=== PATIENT | female | born 1985 | race Caucasian/White ===

== ENCOUNTER → 2017-04-15 | Emergency (ER) | payer OTHER ==
[~2017-04-15] VITALS: Ht 152.4 cm; Wt 60.8 kg
[~2017-04-15] MED LIST: CLEOCIN HCL300 MG PO; DICLOFENAC SODI50 MG PO; KETO10TA2 PO; LINDANE60 M1 TP; MOTRIN800 MG PO; NORFLEX100MG PO; ORPH100T PO; ULTRACET PO
== END | disposition home or self-care (01) ==
LOC: ER 15:52
DX: B34.9 Viral infection, unspecified (principal)

== ENCOUNTER 2017-04-23 15:59 | Emergency (ER) | payer OTHER ==
[~2017-04-23] VITALS: Ht 152.4 cm; Wt 60.8 kg
== END 2017-04-23 20:20 | disposition home or self-care (01) ==
LOC: ER 15:59
DX: J03.80 Acute tonsillitis due to other specified organisms (principal)

== ENCOUNTER → 2017-05-15 | Emergency (ER) | payer OTHER ==
[~2017-05-15] VITALS: Ht 152.4 cm; Wt 59.0 kg
== END | disposition home or self-care (01) ==
LOC: ER 18:49
DX: K52.89 Other specified noninfective gastroenteritis and colitis (principal); E86.0 Dehydration

== ENCOUNTER 2017-06-24 17:45 | Emergency (ER) | payer OTHER ==
[~2017-06-24] VITALS: Ht 157.5 cm; Wt 64.9 kg
== END 2017-06-24 20:26 | disposition home or self-care (01) ==
LOC: ER 17:45
DX: R10.2 Pelvic and perineal pain (principal); Z32.01 Encounter for pregnancy test, result positive

== ENCOUNTER 2017-08-05 18:12 | Emergency (ER) | payer OTHER ==
[~2017-08-05] VITALS: Ht 157.5 cm; Wt 59.9 kg
== END 2017-08-05 22:43 | disposition home or self-care (01) ==
LOC: ER 18:12
DX: S01.01XA Laceration without foreign body of scalp, initial encounter (principal); W23.0XXA Caught, crushed, jammed, or pinched between moving objects, initial encounter; Y93.89 Activity, other specified; Y92.89 Other specified places as the place of occurrence of the external cause; Y99.8 Other external cause status

== ENCOUNTER 2017-10-07 21:18 | Emergency (ER) | payer OTHER ==
[~2017-10-07] VITALS: Ht 152.4 cm; Wt 56.7 kg
== END 2017-10-07 21:53 | disposition home or self-care (01) ==
LOC: ER 21:18
DX: R51 Headache (principal)

== ENCOUNTER 2017-10-17 17:31 | Emergency (ER) | payer OTHER ==
[~2017-10-17] VITALS: Ht 157.5 cm; Wt 56.7 kg
== END 2017-10-17 20:47 | disposition home or self-care (01) ==
LOC: ER 17:31
DX: J03.80 Acute tonsillitis due to other specified organisms (principal)

== ENCOUNTER 2017-11-17 16:48 | Emergency (ER) | payer OTHER ==
[~2017-11-17] VITALS: Ht 152.4 cm; Wt 58.5 kg
== END 2017-11-17 20:15 | disposition home or self-care (01) ==
LOC: ER 16:48
DX: M62.838 Other muscle spasm (principal)

== ENCOUNTER → 2018-01-21 | Emergency (ER) | payer OTHER ==
[~2018-01-21] VITALS: Ht 157.5 cm; Wt 61.2 kg
== END | disposition home or self-care (01) ==
LOC: ER 16:08
DX: S13.4XXA Sprain of ligaments of cervical spine, initial encounter (principal); R51 Headache; X50.9XXA Other and unspecified overexertion or strenuous movements or postures, initial encounter; Y93.89 Activity, other specified; Y92.89 Other specified places as the place of occurrence of the external cause; Y99.8 Other external cause status

== ENCOUNTER 2018-02-26 22:10 | Emergency (ER) | payer OTHER ==
[~2018-02-26] VITALS: Ht 157.5 cm; Wt 60.8 kg
[2018-02-27] MEDS ORDERED: CEFUROXIME500 MG PO (04:03)
[2018-02-27] MEDS ORDERED: GILPHEX TR TAB1 EACH PO (04:03)
== END 2018-02-27 04:16 | disposition home or self-care (01) ==
LOC: ER 22:10
DX: J06.9 Acute upper respiratory infection, unspecified (principal); N39.0 Urinary tract infection, site not specified

== ENCOUNTER 2018-03-12 10:50 | Emergency (ER) | payer OTHER ==
[~2018-03-12] VITALS: Ht 157.5 cm; Wt 59.9 kg
[~2018-03-12 10:50] MED LIST changes: +CEFUROXIME500 MG PO; +GILPHEX TR TAB1 EACH PO
[2018-03-12] MEDS ORDERED: KETO10TA2 PO (13:18)
[2018-03-12] MEDS ORDERED: CLEOCIN HCL300 MG PO (13:18)
== END 2018-03-12 13:20 | disposition home or self-care (01) ==
LOC: ER 10:50
DX: K13.79 Other lesions of oral mucosa (principal)

== ENCOUNTER 2018-04-11 17:14 | Emergency (ER) | payer OTHER ==
[~2018-04-11] VITALS: Ht 157.5 cm; Wt 64.9 kg
== END 2018-04-11 21:28 | disposition home or self-care (01) ==
LOC: ER 17:14
DX: M54.16 Radiculopathy, lumbar region (principal); M54.5 Low back pain

== ENCOUNTER 2018-05-04 14:07 | Emergency (ER) | payer OTHER ==
[~2018-05-04] VITALS: Ht 162.6 cm; Wt 63.5 kg
== END 2018-05-04 16:38 | disposition home or self-care (01) ==
LOC: ER 14:07
DX: R60.0 Localized edema (principal); T39.8X5A Adverse effect of other nonopioid analgesics and antipyretics, not elsewhere classified, initial encounter

== ENCOUNTER 2018-05-12 15:56 | Emergency (ER) | payer OTHER ==
[~2018-05-12] VITALS: Ht 157.5 cm; Wt 56.7 kg
== END 2018-05-12 18:41 | disposition home or self-care (01) ==
LOC: ER 15:56
DX: S00.83XA Contusion of other part of head, initial encounter (principal); W18.39XA Other fall on same level, initial encounter; Y93.89 Activity, other specified; Y92.098 Other place in other non-institutional residence as the place of occurrence of the external cause; Y99.8 Other external cause status

== ENCOUNTER 2018-05-15 12:13 | Emergency (ER) | payer OTHER ==
[~2018-05-15] VITALS: Ht 157.5 cm; Wt 64.9 kg
== END 2018-05-15 17:43 | disposition home or self-care (01) ==
LOC: ER 12:13
DX: G43.909 Migraine, unspecified, not intractable, without status migrainosus (principal)

== ENCOUNTER 2020-12-27 09:07 | Emergency (ER) | payer OTHER ==
[~2020-12-27] VITALS: Ht 152.4 cm; Wt 75.3 kg
[2020-12-27] MEDS ORDERED: AMOX-CLAV 875-1 EAC1 PO (09:27)
[2020-12-27] MEDS ORDERED: MUPIROCIN1 G1 TOP (09:27)
== END 2020-12-27 10:47 | disposition home or self-care (01) ==
LOC: ER 09:07
DX: L01.09 Other impetigo (principal); L08.89 Other specified local infections of the skin and subcutaneous tissue; S90.51 Abrasion of ankle; X58.XXXS Exposure to other specified factors, sequela

== ENCOUNTER 2022-04-24 13:31 | Emergency (ER) | payer OTHER ==
[~2022-04-24] VITALS: Ht 160 cm; Wt 73.5 kg
[~2022-04-24 13:31] MED LIST changes: +AMOX-CLAV 875-1 EAC1 PO; +MUPIROCIN1 G1 TOP; +OSEL75CA PO; +TUSSI PRES-B L480 ML PO
== END 2022-04-24 20:11 | disposition home or self-care (01) ==
LOC: ER 13:31
DX: B34.9 Viral infection, unspecified (principal); Z20.822 Contact with and (suspected) exposure to COVID-19; Z91.013 Allergy to seafood; Z88.8 Allergy status to other drugs, medicaments and biological substances

== ENCOUNTER 2022-09-21 15:16 | Emergency (ER) | payer OTHER ==
[~2022-09-21] VITALS: Ht 160 cm; Wt 68.0 kg
[2022-09-21] MEDS ORDERED: AMOX-CLAV 875-1 EACH PO (15:41)
[2022-09-21] MEDS ORDERED: IBU800 MG PO (15:41)
== END 2022-09-21 19:39 | disposition home or self-care (01) ==
LOC: ER 15:16
DX: K08.89 Other specified disorders of teeth and supporting structures (principal); Z88.8 Allergy status to other drugs, medicaments and biological substances; Z91.013 Allergy to seafood

== ENCOUNTER 2024-01-10 14:23 | Emergency (ER) | payer OTHER ==
[~2024-01-10] VITALS: Ht 162.6 cm; Wt 72.1 kg
[~2024-01-10 14:23] MED LIST changes: +AMOX-CLAV 875-1 EACH PO; +IBU800 MG PO
[2024-01-10] MEDS ORDERED: DEXAMETHASONE SODIUM PHOSPHATE 4 MG/ML VIAL IV STA (15:46)
[2024-01-10] MEDS ORDERED: ACETAMINOPHEN WITH CODEINE 1 UDTAB TABLET PO STA (15:47)
== END 2024-01-10 19:39 | disposition home or self-care (01) ==
LOC: ER 14:25
DX: K04.7 Periapical abscess without sinus (principal); Z91.013 Allergy to seafood; Z88.8 Allergy status to other drugs, medicaments and biological substances

== ENCOUNTER 2024-03-30 08:52 | Emergency (ER) | payer OTHER ==
[~2024-03-30] VITALS: Ht 157.5 cm; Wt 72.6 kg
[2024-03-30] MEDS ORDERED: BUTALB/ACETAMINOPHEN/CAFFEINE 1 TAB TABLET PO ONE ×2 (10:30→11:20)
[2024-03-30] MEDS ORDERED: BENZONATATE 200 MG CAPSULE PO ONE (10:30)
[2024-03-30] MEDS ORDERED: MONTELUKAST SODIUM 10 MG TABLET PO ONE (10:30)
[2024-03-30 11:55] LABS: HEMATOCRIT 40.6 % (36.0-45.00); HEMOGLOBIN 13.9 g/dL (12.0-15.00); MEAN CELL VOLUME 93.8 fL (80.00-100.00); MEAN CORPUSCULAR HEMOGLOBIN 32.2 pg (27.00-32.0); MEAN CORPUSCULAR HGB CONC 34.3 g/dl (32.0-36.0); PLATELET COUNT 269 K/uL (150-450); RED BLOOD COUNT 4.33 M/uL (4.00-6.00); RED CELL DISTRIBUTION WIDTH 12.9 % (11.5-14.5)
[2024-03-30] MEDS ORDERED: LEVALBUTER0.63 MG/3 IH (12:43)
[2024-03-30] MEDS ORDERED: PEPCID AC20 MG PO (12:43)
[2024-03-30] MEDS ORDERED: BENZONATATE200 M1 PO (12:43)
== END 2024-03-30 13:16 | disposition home or self-care (01) ==
LOC: ER 08:55
PROVIDERS: General Practice
DX: J00 Acute nasopharyngitis [common cold] (principal); Z91.013 Allergy to seafood; Z88.8 Allergy status to other drugs, medicaments and biological substances; Z20.822 Contact with and (suspected) exposure to COVID-19

== ENCOUNTER 2024-10-16 12:21 | Emergency (ER) | payer OTHER ==
[~2024-10-16] VITALS: Ht 162.6 cm; Wt 70.8 kg
[~2024-10-16 12:21] MED LIST changes: +BENZONATATE200 M1 PO; +LEVALBUTER0.63 MG/3 IH; +PEPCID AC20 MG PO
[2024-10-16] MEDS ORDERED: ORPHENADRINE CITRATE 100 MG TABLET PO STA (14:08)
[2024-10-16] MEDS ORDERED: KETOROLAC TROMETHAMINE 30 MG VIAL IM STA (14:08)
== END 2024-10-16 14:26 | disposition home or self-care (01) ==
LOC: ER 12:21
DX: M54.50 Low back pain, unspecified (principal); Z91.013 Allergy to seafood

== ENCOUNTER → 2024-12-20 | Emergency (ER) | payer OTHER ==
[~2024-12-20] VITALS: Ht 162.6 cm; Wt 77.1 kg
[~2024-12-20] MED LIST changes: +BENZONATATE 100 MG CAPSULE PO ONE; +CETIRIZINE HCL 5 MG/5 ML ML PO ONE; +CETIRIZINE HCL 5MG/5ML BLIST.PACK PO ONE; +DEXAMETHASONE SODIUM PHOSP/PF 10 MG/ML VIAL IV ONE; +DEXAMETHASONE SODIUM PHOSPHATE 4 MG/ML VIAL ONE; +KETOROLAC TROMETHAMINE 30 MG VIAL IM ONE; +KETOROLAC TROMETHAMINE 30 MG VIAL ONE; +ZYRTEC10 M3 PO
[2024-12-20 14:12] LABS: COVID-19 AG NEGATIVE (NEGATIVE)
== END | disposition home or self-care (01) ==
LOC: ER 11:05
PROVIDERS: General Practice
DX: G43.909 Migraine, unspecified, not intractable, without status migrainosus (principal); J00 Acute nasopharyngitis [common cold]; Z20.822 Contact with and (suspected) exposure to COVID-19; Z91.013 Allergy to seafood